=== PATIENT | male | born 1960 | race Caucasian/White ===

== ENCOUNTER 2016-08-23 10:13 | Emergency (ER) | payer MEDICARE, OTHER ==
[~2016-08-23] VITALS: Ht 180.3 cm; Wt 99.8 kg
[~2016-08-23 10:13] MED LIST: AMLO2.5T PO; BENA1TAB17 PO; CHLO100T2 PO; LEVO100T9 PO; PHEN50TA4 PO; PROPANOLOL PO; ROSU5TAB PO; TAMS0.4C34 PO
[2016-08-23 10:38] VITALS: BP 153/83
== END 2016-08-23 10:39 | disposition home or self-care (01) ==
LOC: ER 10:15
DX: R10.30 Lower abdominal pain, unspecified (principal); I10 Essential (primary) hypertension; Z88.0 Allergy status to penicillin; Z88.8 Allergy status to other drugs, medicaments and biological substances
CPT/HCPCS: 99281; A4606; Z7502; Z7610

== ENCOUNTER 2018-08-11 14:46 | Outpatient (CLI) | payer MEDICARE, OTHER ==
[~2018-08-11 14:46] MED LIST changes: -AMLO2.5T PO; +AMLO2.5T4 PO
== END 2018-08-11 23:59 | disposition home or self-care (01) ==
LOC: RAD 14:46
PROVIDERS: ATTEND Internal Medicine
DX: Z11.1 Encounter for screening for respiratory tuberculosis (principal)
CPT/HCPCS: 71045-TC

== ENCOUNTER 2018-12-02 12:05 | Outpatient (CLI) | payer MEDICARE, OTHER | END 2018-12-02 23:59 | disposition home or self-care (01) | LOC: RAD 12:05 | PROVIDERS: ATTEND Internal Medicine | DX: Z01.818 Encounter for other preprocedural examination (principal) | CPT/HCPCS: 71046 ==